=== PATIENT | female | born 1950 | race Caucasian/White ===

== ENCOUNTER 2018-11-16 08:45 | Day surgery (SDC) | payer MEDICARE, BC ==
[~2018-11-16 08:45] MED LIST: LIDOCAINE HCL 1% MPF 30 SOL ONE; PROPOFOL 500 MG/50 ML EMU IV ONE
[2018-11-16 11:19] VITALS: O2SAT 97
[2018-11-16 11:31] VITALS: BP 117/75; PULSE 71; RESP 20; TEMP 97.6
== END 2018-11-16 11:46 | disposition home or self-care (01) | DRG 951 ==
LOC: SURG 08:45
PROVIDERS: ATTEND Surgery
DX: Z12.11 Encounter for screening for malignant neoplasm of colon (principal); R19.5 Other fecal abnormalities; D12.2 Benign neoplasm of ascending colon; D12.4 Benign neoplasm of descending colon; D12.5 Benign neoplasm of sigmoid colon; K63.5 Polyp of colon
CPT/HCPCS: J2001; J2704